=== PATIENT | male | born 1975 | race Caucasian/White ===

== ENCOUNTER 2017-09-29 18:32 | Emergency (ER) | payer BC ==
[~2017-09-29] VITALS: Ht 198.1 cm; Wt 133.8 kg
[2017-09-29 18:45] VITALS: Ht 198.1 cm; Wt 133.8 kg
[2017-09-29 20:24] VITALS: BP 119/80
== END 2017-09-29 20:24 | disposition home or self-care (01) ==
LOC: ED 18:32
DX: K60.2 Anal fissure, unspecified (principal)